=== PATIENT | female | born 1970 | race Caucasian/White ===

== ENCOUNTER 2020-03-05 02:04 | Inpatient (IN) ==
[2020-03-05] MEDS ORDERED: MORPHINE 4 MG/1 ML VIAL IV STA (02:38)
[2020-03-05] MEDS ORDERED: SODIUM CHLORIDE 0.9% 1,000 ML IV STA (02:38)
[2020-03-05] MEDS ORDERED: KETOROLAC 30 MG/1 ML VIAL IV STA (02:38)
[2020-03-05] MEDS ORDERED: ONDANSETRON 4 MG/2 ML VIAL IV STA (02:39)
[2020-03-05 03:56] LABS: Apearance,Urine CLEAR (Clear); Bacteria,Urine Occasional /HPF (Few); Bilirubin,Urine Negative (Negative); Blood, Urine Small mg/dL (Negative); Glucose,Urine (UA) Negative (Negative); Hyaline Casts,Urine 1 /LPF (0-3); Ketones,Urine Negative (Negative); Mucus,Urine Occasional /LPF (Occasional); Nitrite,Urine Negative (Negative); Protein,Urine Negative; RBC,Urine 2 /HPF (0-4); Squamous Epithelial Cell,Urine Occasional /HPF (0-10); Urine Color Straw (Yellow); Urine Specific Gravity 1.005 (1.001-1.035); Urine Urobilinogen < 2.0 EU/DL (0.2-1.0); WBC,Urine 4 /HPF (0-6)
[2020-03-05 04:07] LABS: Basophils # 0.1 10*3/uL (0.0-0.2); Basophils % 0.5 % (0.0-0.8); Eosinophils # 0.2 10*3/uL (0.0-0.87); Eosinophils % 1.8 % (0.00-10.9); Hematocrit 39.7 VOL% (35.7-47.0); Hemoglobin 12.6 GM/DL (12.0-16.0); Immature Granulocytes % 0.7 %; Immature Granulocytes Absolute 0.09 #; Lymphocytes % 22.3 % (21.3-54.2); Mean Corpuscular HGB Conc 31.7 GM/DL (32-36); Mean Corpuscular Volume 87.8 FL (87-102); Mean Platelet Volume 10.2 FL (9.6-12.0); Neutrophils % 66.7 % (38.7-73.9); Platelet Count 274 T/CUMM (130-400); Red Blood Count 4.52 MC/CUMM (3.8-5.5); Red Cell Distribution Width 12.9 % (9.3-17.3); White Blood Count 13.3 T/CUMM (4-12)
[2020-03-05 04:09] LABS: Albumin 3.1 G/DL (3.4-5.0); Bilirubin,Total 0.4 MG/DL (0.2-1.0); Calcium 8.6 MG/DL (8.5-10.1); Osmolality,Calculated 268.1 MOS/KG (273-304); Total Protein 7.3 G/DL (6.4-8.3)
[2020-03-05] MEDS ORDERED: PIPERACILLIN/TAZOBACTAM 3,375 MG in SODIUM CHLORIDE 0.9% 100 ML IV STA (05:23)
[2020-03-05] MEDS ORDERED: methylPREDNISolone SOD SUC 40 MG/1 ML VIAL ONE (07:20)
[2020-03-05] MEDS ORDERED: methylPREDNISolone SOD SUC 40 MG/1 ML VIAL IV STA (07:22)
[2020-03-05] MEDS ORDERED: cefOXitin 2,000 MG in SYRINGE 1 EACH IV ONE (08:24)
[2020-03-05] MEDS ORDERED: TISSUE ADHESIVE 1 EACH APPLICATOR TOP ONE (09:46)
[2020-03-05] MEDS ORDERED: LIDOCAINE 1%/EPI INJ 20 ML VIAL ONE (09:46)
[2020-03-05] MEDS ORDERED: BUPIVACAINE MPF 0.25% 30 ML VIAL ONE (09:46)
[2020-03-05] MEDS ORDERED: LIDOCAINE 2% 5 ML VIAL ONE (12:03)
[2020-03-05] MEDS ORDERED: propofoL 200 MG/20 ML VIAL IV ONE (12:03)
[2020-03-05] MEDS ORDERED: SEVOFLURANE 1 UNIT/15 MINUTE INH ONE (12:03)
[2020-03-05] MEDS ORDERED: GLYCOPYRROLATE 0.4 MG/2 ML VIAL ONE (12:04)
[2020-03-05] MEDS ORDERED: SUCCINYLCHOLINE 200 MG/10 ML VIAL ONE (12:04)
[2020-03-05] MEDS ORDERED: LACTATED RINGERS 1,000 ML IV ONE (12:04)
[2020-03-05] MEDS ORDERED: fentaNYL 100 MCG/2 ML VIAL ONE (12:04)
[2020-03-05] MEDS ORDERED: MIDAZOLAM 2 MG/2 ML VIAL ONE ×2 (12:04)
[2020-03-05] MEDS ORDERED: ACETAMINOPHEN 1,000 MG/100 ML VIAL IV ONE (12:04)
[2020-03-05] MEDS ORDERED: NEOSTIGMINE 10 MG/10 ML VIAL ONE (12:04)
[2020-03-05] MEDS ORDERED: ROCURONIUM 100 MG/10 ML VIAL IV ONE (12:04)
[2020-03-05] MEDS ORDERED: SODIUM CHLORIDE 0.9% 1,000 ML IV ONE (12:04)
[2020-03-05] MEDS ORDERED: ONDANSETRON 4 MG/2 ML VIAL ONE ×2 (12:04→12:30)
[2020-03-05] MEDS ORDERED: SODIUM CHLORIDE 0.9% 100 ML IV ONE (12:05)
[2020-03-05] MEDS ORDERED: HYDROmorphone 2 MG/1 ML VIAL IV PRN ×2 (12:28→13:06)
[2020-03-05] MEDS ORDERED: ONDANSETRON 4 MG/2 ML VIAL IV PRN ×2 (12:28→13:06)
[2020-03-05] MEDS ORDERED: HYDROmorphone 2 MG/1 ML VIAL ONE (12:30)
[2020-03-05] MEDS ORDERED: PROMETHAZINE 25 MG/1 ML VIAL IM PRN (13:06)
[2020-03-05 13:26] LABS: Basophils % 0.3 % (0.0-0.8); Eosinophils % 0.2 % (0.00-10.9); Hemoglobin 12.4 GM/DL (12.0-16.0); Immature Granulocytes % 0.9 %; Immature Granulocytes Absolute 0.12 #; Lymphocytes % 7.8 % (21.3-54.2); Mean Corpuscular Volume 89.1 FL (87-102); Mean Platelet Volume 9.8 FL (9.6-12.0); Monocytes % 2.1 % (1.7-12.7); Neutrophils % 88.7 % (38.7-73.9); Platelet Count 245 T/CUMM (130-400); Red Blood Count 4.49 MC/CUMM (3.8-5.5); Red Cell Distribution Width 12.8 % (9.3-17.3); White Blood Count 12.9 T/CUMM (4-12)
[2020-03-05] MEDS: LACTATED RINGERS 1,000 ML IV SCH ×2 (13:47→22:11)
[2020-03-05 13:53] LABS: Osmolality,Calculated 270.1 MOS/KG (273-304)
[2020-03-05] MEDS: NITROFURANTOIN MACRO/MONO 100 MG CAPSULE PO SCH ×2 (13:54→21:37)
[2020-03-05] MEDS: KETOROLAC 15 MG/1 ML VIAL IV PRN (21:37)
[2020-03-06] MEDS: LACTATED RINGERS 1,000 ML IV SCH (04:57)
[2020-03-06 06:30] LABS: Basophils % 0.2 % (0.0-0.8); Eosinophils # 0.1 10*3/uL (0.0-0.87); Eosinophils % 0.4 % (0.00-10.9); Hematocrit 34.4 VOL% (35.7-47.0); Hemoglobin 10.8 GM/DL (12.0-16.0); Immature Granulocytes % 0.6 %; Immature Granulocytes Absolute 0.07 #; Lymphocytes # 2.3 10*3/uL (1.4-4.0); Mean Corpuscular HGB Conc 31.4 GM/DL (32-36); Mean Corpuscular Volume 87.5 FL (87-102); Mean Platelet Volume 10.8 FL (9.6-12.0); Monocytes % 7.7 % (1.7-12.7); Neutrophils % 72.1 % (38.7-73.9); Platelet Count 209 T/CUMM (130-400); Red Blood Count 3.93 MC/CUMM (3.8-5.5); Red Cell Distribution Width 12.7 % (9.3-17.3); White Blood Count 12.2 T/CUMM (4-12)
[2020-03-06] MEDS: ENOXAPARIN 40 MG/0.4 ML SYRINGE SUBCUT SCH (06:41)
[2020-03-06 06:55] LABS: Calcium 8.3 MG/DL (8.5-10.1); Osmolality,Calculated 269.1 MOS/KG (273-304)
[2020-03-06 07:20] LABS: Hypochromasia Slight; Platelet Estimate Adequate
[2020-03-06] MEDS: KETOROLAC 15 MG/1 ML VIAL IV PRN ×2 (07:40→20:43)
[2020-03-06] MEDS: NITROFURANTOIN MACRO/MONO 100 MG CAPSULE PO SCH ×2 (09:14→20:43)
[2020-03-06] MEDS: POTASSIUM CHLORIDE 20 MEQ TABLET PO PRN ×4 (09:15→20:43)
[2020-03-07] MEDS: ENOXAPARIN 40 MG/0.4 ML SYRINGE SUBCUT SCH (05:43)
[2020-03-07 07:14] LABS: Basophils # 0.1 10*3/uL (0.0-0.2); Basophils % 0.6 % (0.0-0.8); Eosinophils # 0.4 10*3/uL (0.0-0.87); Eosinophils % 3.5 % (0.00-10.9); Hematocrit 35.2 VOL% (35.7-47.0); Hemoglobin 11.2 GM/DL (12.0-16.0); Lymphocytes # 3.5 10*3/uL (1.4-4.0); Lymphocytes % 35.5 % (21.3-54.2); Mean Corpuscular HGB Conc 31.8 GM/DL (32-36); Mean Corpuscular Volume 86.9 FL (87-102); Mean Platelet Volume 10.5 FL (9.6-12.0); Monocytes % 9.8 % (1.7-12.7); Neutrophils % 49.6 % (38.7-73.9); Platelet Count 262 T/CUMM (130-400); Red Blood Count 4.05 MC/CUMM (3.8-5.5); Red Cell Distribution Width 12.6 % (9.3-17.3); White Blood Count 9.9 T/CUMM (4-12)
[2020-03-07 07:28] LABS: Calcium 8.7 MG/DL (8.5-10.1)
[2020-03-07 08:00] VITALS: BP 131/81
[2020-03-07] MEDS: NITROFURANTOIN MACRO/MONO 100 MG CAPSULE PO SCH (08:20)
[2020-03-23] MEDS ORDERED: PALIPERIDONE PALMITATE 819 MG IM SCH (09:00)
== END 2020-03-07 11:20 | disposition home or self-care (01) | DRG 330 ==
LOC: N.EDINP 02:04 → N.ED 02:04 → N.3E 10:11
PROVIDERS: ADMIT Surgery; ATTEND Surgery